=== PATIENT | female | born 1960 | race Caucasian/White ===

== ENCOUNTER 2020-09-03 09:33 | Emergency (ER) | payer MEDICARE, SELFPAY ==
--- NOTE | ~2020-09-03 | XR_ITS ---
EXAMINATION: XR chest 2V DATE: 09/03/2020 10:13 INDICATION: Chest congestion, shortness of breath, tobacco use TECHNIQUE: PA and lateral views of the chest are obtained. COMPARISON: None available FINDINGS: There are airspace opacities of the lung bases, left greater than right. There is no pleura l effusion or pneumothorax. The cardiomediastinal silhouette is normal. There is mild thoracic spondy losis. IMPRESSION: 1. Bibasilar airspace opacities, consistent with pneumonia versus atelectasis. Reviewed, dictated and finalized at location A.
--- NOTE | 2020-09-03 09:38 | ED.GENADULT ---
HPI - General Adult General Chief complaint: Upper Respiratory Infection Stated complaint: shortness of breath/chest congestion Time Seen by Provider: 09/03/20 10:10 Source: patient Mode of arrival: ambulatory Limitations: no limitations History of Present Illness HPI narrative: 60-year-old female patient presents to the [facility] with complaints of shortness of breath for the past 2 weeks. Patient is a smoker. Patient states she has had pneumonia multiple times and states that her last pneumonia was last year before . Patient states that she has had a little bit of nasal congestion, runny nose. Denies any fevers but states she has had some chills at times. Denies any ear pain or sore throat. Patient states she has had a cough and at times does cough up some clear sputum. Denies using any type of inhalers at home but states she has been using some [id number] Mucinex but it has not helped with the cough. Related Data Home Medications Medication Instructions Recorded Confirmed temazepam [Restoril] 30 mg PO HS 09/03/20 09/03/20 trazodone 09/03/20 09/03/20 Allergies Allergy/AdvReac Type Severity Reaction Status Date / Time No Known Allergies Allergy Unverified 09/24/17 13:16 Review of Systems Review of Systems: Narrative: CONSTITUTIONAL: Denies fever, chills, or sweats. EYES: Denies visual changes, redness, or discharge. ENT: Positive rhinorrhea, congestion, denies sore throat, or otalgia. CARDIOVASCULAR: Denies chest pain, palpitations, or edema. RESPIRATORY: Positive cough with dyspnea. GASTROINTESTINAL: Denies abdominal pain, nausea, vomiting, or diarrhea. GENITOURINARY: Denies dysuria or hematuria. SKIN: Denies rash or itching. MUSCULOSKELETAL: Denies back pain, joint pain, or myalgia. NEUROLOGIC: Denies headache, numbness, or weakness. PSYCHIATRIC: Denies anxiety or depression. [facility] Past Medical History Medical History (Updated 09/03/20 @ 10:32 by CHARITO Carey) Anxiety Arthritis Depression Spinal stenosis Surgical History Surgical History (Updated 09/03/20 @ 09:39 by CHARITO Carey) H/O: hysterectomy Social History Social History (Updated 09/03/20 @ 09:39 by CHARITO Carey) Smoking status: Current every day smoker Comments At the time of my signature I agree with nursing past medical history, surgical, social, and family history. There is no relevant family history pertinent to the presenting complaint. Exam Narrative: Exam Narrative: GENERAL: ill-appearing, well-nourished, and in no acute distress. HEAD: Normocephalic, atraumatic. EYES: PERRLA and EOMI. ENT: Nares with erythema and edema noted bilaterally, no rhinorrhea or epistaxis. Mucous membranes moist. Bilateral TMs are clear no erythema or foreign bodies to the canal. Posterior pharynx no erythema, tonsillectomy, exudates or lesions present. NECK: Supple. No lymphadenopathy CHEST: Patient has inspiratory and expiratory wheezing noted to bilateral upper lower lobes on auscultation. Patient does have some slight labored breathing noted during exam and talking in broken sentences. No tripoding noted at this time. HEART: Regular rate and rhythm. No murmur heard. Normal peripheral pulses. ABDOMEN: Soft, nontender, nondistended, normal active bowel sounds. EXTREMITIES: Normal range of motion. No edema. SKIN: Warm, dry, no rash. NEURO: No focal deficits. Alert and oriented x3. Course Reevaluation(s) Reevaluation #1: Reevaluated patient after breathing treatment. Patient did not fully complete the breathing treatment states that she does not want the rest of it. Listened the patient's lungs she does sound less tight but continues to have wheezing rhonchi to bilateral upper lower lobes. Discussed with patient that we will send her home with an antibiotic, oral steroids, inhaler as well as an albuterol for her nebulizer. Discussed with patient that the hospital will contact her probably sometime today to
[2020-09-03 09:44] VITALS: BP 141/76; PULSE 75; RESP 20; TEMP 37.1; O2SAT 96
== END 2020-09-03 11:08 | disposition home or self-care (01) ==
PROVIDERS: Emergency Provider Nurse Practitioner Family; PCP Internal Medicine
DX: Z20.828 Contact with and (suspected) exposure to other viral communicable diseases (principal); J18.9 Pneumonia, unspecified organism; F17.200 Nicotine dependence, unspecified, uncomplicated; M19.90 Unspecified osteoarthritis, unspecified site; F32.9 Major depressive disorder, single episode, unspecified; M48.00 Spinal stenosis, site unspecified
CPT/HCPCS: 71046; 87081; 87804; 87880; 94640; 99213; G0463